=== PATIENT | female | born 1955 | race Caucasian/White ===

== ENCOUNTER 2022-04-09 08:55 | Observation (INO) | payer BC ==
[2022-04-08 11:13] VITALS: BMI 29.9
[2022-04-09] MEDS ORDERED: Ketorolac Tromethamine 30 MG/ML VIAL ONE (09:27)
[2022-04-09] MEDS ORDERED: Acetaminophen 500 MG TAB ONE (09:27)
[2022-04-09 10:05] LABS: SARS-CoV-2 NAA Rapid Test Not Detected (NotDetected)
[2022-04-09] MEDS ORDERED: Fentanyl 250 MCG/5 ML VIAL ONE (12:20)
[2022-04-09] MEDS ORDERED: Bupivacaine/Epinephrine 0.25% 30 ML VIAL ONE ×2 (12:21→12:22)
[2022-04-09] MEDS ORDERED: CEFAZOLIN 2 GM VIAL ONE (12:40)
[2022-04-09] MEDS ORDERED: Sodium Chloride 0.9% 100 ML ONE (12:40)
[2022-04-09] MEDS ORDERED: ePHEDrine 50 MG/ML VIAL ONE (12:52)
[2022-04-09] MEDS ORDERED: Lidocaine 1% PF 5 ML VIAL ONE (12:52)
[2022-04-09] MEDS ORDERED: Rocuronium Bromide 10 MG/ML (10ML VIAL) ONE (12:52)
[2022-04-09] MEDS ORDERED: Dexamethasone 20 MG/5 ML VIAL ONE (12:52)
[2022-04-09] MEDS ORDERED: Ondansetron PF 4 MG/2 ML Vial ONE (12:52)
[2022-04-09] MEDS ORDERED: PROPOFOL 200 MG/20 ML VIAL ONE (12:52)
[2022-04-09] MEDS ORDERED: Glycopyrrolate 0.2 MG/ML 5 ML SYRINGE ONE (12:52)
[2022-04-09] MEDS ORDERED: NEOSTIGMINE 3 MG/3 ML SYR 3 MG/3 ML SYRINGE ONE (12:52)
[2022-04-09] MEDS ORDERED: Dextrose 50% Abboject 50 ML SYRINGE SLOW IVP PRN (15:38)
[2022-04-09] MEDS ORDERED: Morphine 4 MG/ML VIAL SLOW IVP PRN ×2 (15:38→15:44)
[2022-04-09] MEDS ORDERED: HYDROcodone/Acetaminophen 10/325 mg Tablet PO PRN (15:38)
[2022-04-09] MEDS ORDERED: hydrALAZINE 20 MG/ML VIAL SLOW IVP PRN (15:38)
[2022-04-09] MEDS ORDERED: Calcium Carbonate 500 MG ChewTAB PO PRN (15:38)
[2022-04-09] MEDS ORDERED: Ondansetron PF 4 MG/2 ML Vial IVP PRN (15:38)
[2022-04-09] MEDS ORDERED: Dextrose 5% in Water 1,000 ML IV PRN (15:38)
[2022-04-09] MEDS ORDERED: Mag-Al 1200 mg/1200 mg/30 ML UDCUP PO PRN (15:38)
[2022-04-09] MEDS ORDERED: Promethazine HCl 25 MG/ML VIAL IM PRN (15:38)
[2022-04-09] MEDS ORDERED: Fentanyl 100 MCG/2 ML VIAL ONE ×2 (15:48→19:32)
[2022-04-09] MEDS: Ketorolac Tromethamine 30 MG/ML VIAL IVP SCH ×2 (18:00→22:12)
[2022-04-09] MEDS: Famotidine/PF 20 mg/2ml Vial SLOW IVP SCH (22:11)
[2022-04-09] MEDS: D5 1/2 NS w/20 mEq KCL 1,000 ML IV SCH (22:11)
[2022-04-09] MEDS: Famotidine 20 MG TAB PO SCH ×2 (22:13→22:14)
[2022-04-10] MEDS: Ketorolac Tromethamine 30 MG/ML VIAL IVP SCH ×3 (00:27→12:27)
[2022-04-10] MEDS: D5 1/2 NS w/20 mEq KCL 1,000 ML IV SCH ×2 (01:38→08:50)
[2022-04-10 05:33] LABS: #Monocytes 0.5 thou/uL (0.11-0.59); #Neutrophils 8.5 thou/uL (1.40-6.50); %Basophils 0.3 % (0.0-1.0); %Eosinophils 0.1 % (0.0-10.0); %Monocytes 4.8 % (0.0-10.0); %Neutrophils 84.8 % (42.0-75.0); Hemoglobin 11.9 g/dL (12.0-16.0); Mean Corpuscular Hemoglobin 29.4 pg (27.0-31.0); Mean Corpuscular Volume 91.8 fl (78.0-98.0); Mean Platelet Volume 8.6 fL (7.4-10.4); Platelet Count 233 10x3/uL (130-400); RBC Distribution Width 13.2 % (11.5-14.5); Red Blood Cell (RBC) Count 4.05 mill/uL (4.20-5.40)
[2022-04-10] MEDS: Famotidine/PF 20 mg/2ml Vial SLOW IVP SCH (08:51)
[2022-04-10] MEDS ORDERED: Enoxaparin Sodium 40 MG/0.4 ML SYRINGE SC SCH (09:00)
[2022-04-10] MEDS: Famotidine 20 MG TAB PO SCH (09:02)
[2022-04-10 09:43] VITALS: BP 118/77; TEMP 97.5
== END 2022-04-10 12:40 | disposition home or self-care (01) ==
LOC: SDC 08:55 → SJJU 15:21
PROVIDERS: ADMIT Specialist; ATTEND Specialist
PROC: 0BQT4ZZ Repair Diaphragm, Percutaneous Endoscopic Approach (ICD-10-PCS; principal; 2022-04-09)
PROC: 0DV44ZZ Restriction of Esophagogastric Junction, Percutaneous Endoscopic Approach (ICD-10-PCS; 2022-04-09)
PROC: 0DS64ZZ Reposition Stomach, Percutaneous Endoscopic Approach (ICD-10-PCS; 2022-04-09)
DX: K44.9 Diaphragmatic hernia without obstruction or gangrene (principal); E89.0 Postprocedural hypothyroidism; M19.90 Unspecified osteoarthritis, unspecified site; E78.00 Pure hypercholesterolemia, unspecified; Z79.890 Hormone replacement therapy; Z79.899 Other long term (current) drug therapy; Z20.822 Contact with and (suspected) exposure to COVID-19
CPT/HCPCS: 36415; 85025; 96372; 96374; 96375; 96376; C1713; C1776; G0378; J1100; J1650; J1885; J2270; J2405; J2704; J3010; J3480; J3490; S0028; U0002

== ENCOUNTER 2025-02-15 08:20 | Day surgery (SDC) | payer BC ==
[2025-02-10 12:44] VITALS: BMI 29.4
[2025-02-15] MEDS ORDERED: Lidocaine 1% PF 5 ML VIAL ONE (10:13)
[2025-02-15] MEDS ORDERED: PROPOFOL 20 ML ONE (10:13)
[2025-02-15] MEDS ORDERED: Rocuronium Bromide 10 MG/ML (10ML VIAL) ONE (10:13)
[2025-02-15] MEDS ORDERED: fentaNYL PF 100 MCG/2 ML SYRINGE ONE ×2 (10:14→11:18)
[2025-02-15] MEDS ORDERED: Bupivacaine 0.25% HCL 30 ML VIAL ONE (11:18)
[2025-02-15] MEDS ORDERED: CEFAZOLIN 2 GM VIAL ONE (11:30)
[2025-02-15] MEDS ORDERED: Ondansetron PF 4 MG/2 ML Vial ONE ×2 (12:21→12:32)
[2025-02-15] MEDS ORDERED: SUGAMMADEX SODIUM 200 MG/2 ML VIAL ONE (12:22)
== END 2025-02-15 16:04 | disposition home or self-care (01) ==
LOC: SDC 08:20
PROVIDERS: ATTEND Surgery
PROC: 0WUF0JZ Supplement Abdominal Wall with Synthetic Substitute, Open Approach (ICD-10-PCS; principal; 2025-02-15)
DX: K43.9 Ventral hernia without obstruction or gangrene (principal); E78.00 Pure hypercholesterolemia, unspecified; Z98.890 Other specified postprocedural states; Z90.49 Acquired absence of other specified parts of digestive tract; Z90.710 Acquired absence of both cervix and uterus; Z79.899 Other long term (current) drug therapy
CPT/HCPCS: C1781; J0169; J0665; J1100; J2405; J2704; S2900